=== PATIENT | female | born 1970 | race Caucasian/White ===

== ENCOUNTER 2019-01-05 02:14 | Emergency (ER) | payer OTHER ==
[~2019-01-05] VITALS: Ht 177.8 cm; Wt 159.1 kg
[2019-01-05] MEDS ORDERED: ipratropium/albuterol 3ml nebule NEB ONE (02:30)
[2019-01-05 02:45] LABS: BASOPHILS % (AUTO) 0.4 % (0-1); EOSINOPHILS # (AUTO) 0.1 X10'3 (0-0.9); HEMATOCRIT 44.9 % (35.0-45.0); HEMOGLOBIN 14.9 g/dl (12.0-16.0); LYMPHOCYTES # (AUTO) 1.3 X10'3 (1.1-4.8); MEAN CORPUSCULAR HEMOGLOBIN 29.9 PG (27.0-31.0); MEAN CORPUSCULAR HGB CONC 33.2 g/dL (33.0-36.5); MEAN CORPUSCULAR VOLUME 89.9 FL (78-98); MEAN PLATELET VOLUME 8.1 FL (7.4-10.4); MONOCYTES # (AUTO) 0.4 X10'3 (0-0.9); MONOCYTES % (AUTO) 6.5 % (2-12); NEUTROPHILS # (AUTO) 3.9 X10'3 (1.8-7.7); NEUTROPHILS % (AUTO) 68.1 % (42-75); PLATELET COUNT 242 X10'3 (140-440); RED BLOOD COUNT 4.99 X10'6 (4.20-5.60); RED CELL DISTRIBUTION WIDTH 14.1 % (11.5-14.5); WHITE BLOOD COUNT 5.8 X10'3 (4.5-11.0)
[2019-01-05 02:59] LABS: ALANINE AMINOTRANSFERASE 37 U/L (12-78); ALBUMIN 3.1 G/DL (3.4-5.0); ALBUMIN/GLOBULIN RATIO 0.7 (1.1-1.5); ALKALINE PHOSPHATASE 102 IU/L (46-116); ANION GAP 4 (8-16); ASPARTATE AMINO TRANSFERASE 27 U/L (10-37); BILIRUBIN,TOTAL 0.3 MG/DL (0.1-1.0); BLOOD UREA NITROGEN 16 MG/DL (7-18); BUN/CREATININE RATIO 18.6 (6.6-38.0); CALCIUM 9.2 MG/DL (8.5-10.1); CHLORIDE 103 MMOL/L (99-107); CREATININE 0.86 MG/DL (0.40-0.90); GLUCOSE 135 MG/DL (70-104); POTASSIUM 4.3 MMOL/L (3.5-5.1); SODIUM 139 MMOL/L (135-145); TOTAL CARBON DIOXIDE 31.8 MMOL/L (24-32); TOTAL PROTEIN 7.7 G/DL (6.4-8.2); eGFR 71 ML/MIN
[2019-01-05 03:05] LABS: MAGNESIUM 2.2 MG/DL (1.5-2.4); TROPONIN I < 0.04 NG/ML (0.0-0.05)
[2019-01-05 03:14] LABS: D-DIMER 0.25 MG/L FEU (0-0.50)
[2019-01-05] MEDS ORDERED: PRED20TA PO (03:20)
[2019-01-05] MEDS ORDERED: predniSONE 20 mg tablet PO ONE (03:20)
[2019-01-05] MEDS ORDERED: ALBU8.5H8 IH (03:20)
[2019-01-05 03:22] VITALS: BP 141/63
== END 2019-01-05 03:56 | disposition home or self-care (01) ==
LOC: ER 02:15
DX: J40 Bronchitis, not specified as acute or chronic (principal); R00.0 Tachycardia, unspecified; R06.82 Tachypnea, not elsewhere classified; F17.210 Nicotine dependence, cigarettes, uncomplicated; Z79.899 Other long term (current) drug therapy
CPT/HCPCS: 36415; 71045; 80053; 83735; 83880; 84484; 85025; 85379; 93005; 94640; 94760; 99284; J7512

== ENCOUNTER 2019-04-20 18:52 | Emergency (ER) | payer MEDICAID ==
[~2019-04-20] VITALS: Ht 177.8 cm; Wt 210.8 kg
[~2019-04-20 18:52] MED LIST: ALBU8.5H8 IH
[2019-04-20 19:13] VITALS: BP 162/112
--- NOTE | 2019-04-20 20:36 | NUR ---
CALLED PT. NO ANSWER LEFT A MESSAGE FOR PT. TO CALL OR COME BACK TO BE SEEN
== END 2019-04-20 20:42 | disposition left against medical advice (07) ==
LOC: ER 18:53
DX: R51 Headache (principal); Z53.21 Procedure and treatment not carried out due to patient leaving prior to being seen by health care provider

== ENCOUNTER 2020-06-06 07:02 | Outpatient (CLI) | payer MEDICARE, MEDICAID ==
[~2020-06-06] VITALS: Ht 177.8 cm; Wt 204.1 kg
[2020-06-06] MEDS ORDERED: albuterol 2.5 MG/3 ML nebule NEB ONE (08:10)
== END 2020-06-06 23:59 | disposition home or self-care (01) ==
LOC: RT 07:02
PROVIDERS: ATTEND Internal Medicine Pulmonary Disease
DX: J44.9 Chronic obstructive pulmonary disease, unspecified (principal); E66.9 Obesity, unspecified
CPT/HCPCS: 94060; 94729; 94760

== ENCOUNTER 2023-04-24 18:51 | Emergency (ER) | payer MEDICARE, MEDICAID ==
[~2023-04-24] VITALS: Ht 177.8 cm; Wt 143.2 kg
[~2023-04-24 18:51] MED LIST changes: +ALBU8.5H17 IH; -ALBU8.5H8 IH
[2023-04-24 19:10] VITALS: BP 134/94; PULSE 132; RESP 28; TEMP 102.9; O2SAT 95
== END 2023-04-25 00:20 | disposition left against medical advice (07) ==
LOC: ER 18:52
DX: U07.1 COVID-19 (principal); Z53.21 Procedure and treatment not carried out due to patient leaving prior to being seen by health care provider
CPT/HCPCS: 99281

== ENCOUNTER → 2023-12-18 | Outpatient (CLI) | payer MEDICARE, MEDICAID | END | disposition home or self-care (01) | LOC: RAD 12:14 | PROVIDERS: ATTEND Student in an Organized Health Care Education/Training Program | DX: M17.12 Unilateral primary osteoarthritis, left knee (principal); M79.605 Pain in left leg | CPT/HCPCS: 73560; 73590; 73610 ==

== ENCOUNTER 2024-02-21 17:16 | Emergency (ER) | payer MEDICARE, MEDICAID ==
[~2024-02-21] VITALS: Ht 177.8 cm; Wt 143.7 kg
[2024-02-21 17:35] LABS: BILIRUBIN,URINE NEGATIVE (Neg); CLARITY,URINE CLEAR (Clear); COLOR,URINE YELLOW (Yellow); GLUCOSE, URINE 100 mg/dl (Neg); KETONES,URINE NEGATIVE (Neg); LEUKOCYTE ESTERASE ,URINE TRACE (Neg); NITRITES, URINE NEGATIVE (Neg); OCCULT BLOOD,URINE NEGATIVE (Neg); PH,URINE 5.5 (4.8-8.0); PROTEIN,URINE NEGATIVE (Neg); UROBILINOGEN,URINE 0.2 E.U/dL (0.2-1.0)
[2024-02-21 17:38] LABS: UA COLLECTION TYPE CLN CATCH MIDSTREAM
[2024-02-21 17:41] LABS: BACTERIA,URINE FEW /HPF (Neg); MUCUS STRANDS FEW /LPF (Neg); RBC,URINE 0-2 /HPF (0-2); SQUAMOUS EPITHELIAL CELL,UR MANY /LPF (FEW)
[2024-02-21 17:45] LABS: URINE HCG NEGATIVE (NEG)
[2024-02-21 18:24] LABS: ALANINE AMINOTRANSFERASE 22 U/L (12-78); ALBUMIN 3.3 G/DL (3.4-5.0); ALBUMIN/GLOBULIN RATIO 0.9 (1.1-1.5); ALKALINE PHOSPHATASE 53 IU/L (46-116); ANION GAP 5 (8-16); BILIRUBIN,TOTAL 0.7 MG/DL (0.1-1.0); BLOOD UREA NITROGEN 22 MG/DL (7-18); BUN/CREATININE RATIO 22.2 (10.0-20.0); CALCIUM 9.2 MG/DL (8.5-10.1); CHLORIDE 103 MMOL/L (99-107); CREATININE 0.99 MG/DL (0.40-0.90); GLUCOSE 107 MG/DL (70-104); LIPASE 49 U/L (16-77); POTASSIUM 3.6 MMOL/L (3.5-5.1); SODIUM 139 MMOL/L (135-145); TOTAL CARBON DIOXIDE 30.9 MMOL/L (24-32); TOTAL PROTEIN 7.1 G/DL (6.4-8.2); eCRCL 73 ML/MIN; eGFR 59 ML/MIN
[2024-02-21 18:46] LABS: ASPARTATE AMINO TRANSFERASE 10 U/L (10-37)
[2024-02-21 18:50] LABS: BASOPHILS % (AUTO) 0.4 % (0-1); EOSINOPHILS # (AUTO) 0.1 X10'3 (0-0.9); HEMOGLOBIN 14.9 g/dl (12.0-16.0); LYMPHOCYTES # (AUTO) 1.9 X10'3 (1.1-4.8); LYMPHOCYTES % (AUTO) 27.3 % (21-51); MEAN CORPUSCULAR HEMOGLOBIN 29.8 PG (27.0-31.0); MEAN CORPUSCULAR HGB CONC 33.8 g/dL (33.0-36.5); MEAN CORPUSCULAR VOLUME 88.2 FL (78-98); MONOCYTES # (AUTO) 0.6 X10'3 (0-0.9); MONOCYTES % (AUTO) 8.1 % (2-12); NEUTROPHILS # (AUTO) 4.4 X10'3 (1.8-7.7); NEUTROPHILS % (AUTO) 63.2 % (42-75); PLATELET COUNT 227 X10'3 (140-440); RED BLOOD COUNT 4.99 X10'6 (4.20-5.60); RED CELL DISTRIBUTION WIDTH 13.7 % (11.5-14.5)
[2024-02-21 19:20] VITALS: BP 141/94; PULSE 91; RESP 16; TEMP 98; O2SAT 99
== END 2024-02-21 20:38 | disposition left against medical advice (07) ==
LOC: ER 17:16
DX: R10.13 Epigastric pain (principal); R11.10 Vomiting, unspecified; Z53.21 Procedure and treatment not carried out due to patient leaving prior to being seen by health care provider
CPT/HCPCS: 36415; 80053; 81001; 81025; 83690; 85025

== ENCOUNTER 2024-07-18 02:34 | Emergency (ER) | payer MEDICARE, MEDICAID ==
[~2024-07-18] VITALS: Ht 177.8 cm; Wt 140.1 kg
[2024-07-18 05:21] LABS: BASOPHILS % (AUTO) 0.4 % (0-1); EOSINOPHILS # (AUTO) 0.1 X10'3 (0-0.9); EOSINOPHILS % (AUTO) 1.2 % (0-6); HEMOGLOBIN 14.3 g/dl (12.0-16.0); LYMPHOCYTES # (AUTO) 1.7 X10'3 (1.1-4.8); MEAN CORPUSCULAR HEMOGLOBIN 30.5 PG (27.0-31.0); MEAN CORPUSCULAR HGB CONC 34.1 g/dL (33.0-36.5); MEAN CORPUSCULAR VOLUME 89.5 FL (78-98); MEAN PLATELET VOLUME 7.9 FL (7.4-10.4); MONOCYTES # (AUTO) 0.4 X10'3 (0-0.9); MONOCYTES % (AUTO) 6.7 % (2-12); NEUTROPHILS # (AUTO) 3.5 X10'3 (1.8-7.7); NEUTROPHILS % (AUTO) 61.7 % (42-75); PLATELET COUNT 270 X10'3 (140-440); RED CELL DISTRIBUTION WIDTH 13.8 % (11.5-14.5); WHITE BLOOD COUNT 5.6 X10'3 (4.5-11.0)
[2024-07-18 05:38] LABS: BILIRUBIN,URINE NEGATIVE (Neg); CLARITY,URINE SLIGHTLY CLOUDY (Clear); COLOR,URINE YELLOW (Yellow); GLUCOSE, URINE 250 mg/dl (Neg); KETONES,URINE NEGATIVE (Neg); LEUKOCYTE ESTERASE ,URINE NEGATIVE (Neg); NITRITES, URINE NEGATIVE (Neg); OCCULT BLOOD,URINE NEGATIVE (Neg); PH,URINE 5.5 (4.8-8.0); PROTEIN,URINE NEGATIVE (Neg); UROBILINOGEN,URINE 0.2 E.U/dL (0.2-1.0)
[2024-07-18 05:42] LABS: UA COLLECTION TYPE CLN CATCH MIDSTREAM
[2024-07-18 05:43] LABS: ALANINE AMINOTRANSFERASE 18 U/L (12-78); ALBUMIN 3.6 G/DL (3.4-5.0); ALBUMIN/GLOBULIN RATIO 0.9 (1.1-1.5); ALKALINE PHOSPHATASE 62 IU/L (46-116); ANION GAP 6 (8-16); ASPARTATE AMINO TRANSFERASE 16 U/L (10-37); BILIRUBIN,TOTAL 0.4 MG/DL (0.1-1.0); BLOOD UREA NITROGEN 24 MG/DL (7-18); CALCIUM 9.3 MG/DL (8.5-10.1); CHLORIDE 103 MMOL/L (99-107); CREATININE 1.09 MG/DL (0.40-0.90); GLUCOSE 112 MG/DL (70-104); POTASSIUM 3.4 MMOL/L (3.5-5.1); SODIUM 138 MMOL/L (135-145); TOTAL CARBON DIOXIDE 29.4 MMOL/L (24-32); TOTAL PROTEIN 7.6 G/DL (6.4-8.2); eCRCL 66 ML/MIN; eGFR 53 ML/MIN
[2024-07-18 05:52] LABS: LIPASE 51 U/L (16-77); PRO BRAIN NATRIURETIC PEPTIDE 60 PG/ML (0-125)
[2024-07-18 05:54] LABS: BACTERIA,URINE 1+ /HPF (Neg); MUCUS STRANDS NONE SEEN /LPF (Neg); RBC,URINE NONE SEEN /HPF (0-2); SQUAMOUS EPITHELIAL CELL,UR MODERATE /LPF (FEW)
[2024-07-18 07:26] VITALS: RESP 12
[2024-07-18] MEDS: metoclopramide 5 mg/ml inj IV ONE (08:10)
[2024-07-18] MEDS: normal saline 1000ML IV soln IVB ONE (08:11)
[2024-07-18] MEDS: potassium bicarbonate/cit acid 25mEq tablet.effervescent PO SCH (08:27)
[2024-07-18] MEDS ORDERED: ONDA-104 PO (09:21)
[2024-07-18] MEDS ORDERED: PANT-47 PO (09:21)
[2024-07-18 10:23] VITALS: BP 116/72; PULSE 86; TEMP 97.4; O2SAT 100
== END 2024-07-18 10:15 | disposition home or self-care (01) ==
LOC: ER 02:35
DX: K29.00 Acute gastritis without bleeding (principal); K29.60 Other gastritis without bleeding; E86.0 Dehydration; Z98.84 Bariatric surgery status
CPT/HCPCS: 36415; 71045; 80053; 81001; 83690; 83880; 84484; 85025; 87088; 93005; 96361; 96374; 99285; J2765; J7030

== ENCOUNTER 2024-10-06 09:22 | Day surgery (SDC) | payer MEDICARE, MEDICAID ==
[~2024-10-06] VITALS: Ht 177.8 cm; Wt 137.0 kg
[2024-10-06] VITALS (8 sets, daily range): BP systolic 77–134; BP diastolic 45–90; PULSE 76–85; RESP 13–16; TEMP 97.5; O2SAT 94–100
[~2024-10-06 09:22] MED LIST changes: -ALBU8.5H17 IH; +ALBU8HFA INH; +CYCL1DRO18; +HYDR25TA4 PO; +LEVO50TA8 PO; +LISI20TA28 PO; +PANT40TA54 PO; +fentaNYL/PF 50MCG/1 ML 2ML syringe ONE
[2024-10-06] MEDS ORDERED: propofol 10mg/ml 20ml vial IV ONE (12:01)
== END 2024-10-06 13:40 | disposition home or self-care (01) ==
LOC: GI LAB 09:22
PROVIDERS: ATTEND Internal Medicine Gastroenterology
DX: Z12.11 Encounter for screening for malignant neoplasm of colon (principal); K63.5 Polyp of colon; K64.8 Other hemorrhoids; K21.9 Gastro-esophageal reflux disease without esophagitis; K29.50 Unspecified chronic gastritis without bleeding; I10 Essential (primary) hypertension; G47.33 Obstructive sleep apnea (adult) (pediatric); E66.9 Obesity, unspecified; Z68.41 Body mass index [BMI] 40.0-44.9, adult; Z98.890 Other specified postprocedural states; Z79.899 Other long term (current) drug therapy
CPT/HCPCS: 43239; 45385; 88305; A4620; C1889; J2704; J3010; J7030; Z7512